=== PATIENT | female | born 1935 | race Caucasian/White ===

== ENCOUNTER → 2024-04-07 10:57 | Outpatient (REF) | payer OTHER, SELFPAY | LOC: HWRCS 10:57 | PROVIDERS: ATTENDING PHYSICIAN Internal Medicine Cardiovascular Disease; FAMILY PHYSICIAN Family Medicine | DX: I35.0 Nonrheumatic aortic (valve) stenosis (principal); I10 Essential (primary) hypertension | CPT/HCPCS: 93306 ==

== ENCOUNTER 2024-08-09 16:54 | Emergency (ER) | payer OTHER, SELFPAY ==
[2024-08-09 17:00] VITALS: BP 150/71
--- NOTE | 2024-08-09 18:46 | ED.GENMED ---
History of Present Illness
General
Chief Complaint: Fall
Source: patient
Exam Limitations: none
Time Seen by Provider: 08/09/24 17:12
Nursing documentation reviewed up to this point in time: agreed with
History of Present Illness
History of Present Illness:
Patient states she lost her balance and fell back, hitting her head on unknown object. No LOC. Sustained a laceration to top of head. Incident occurred just BASKET PERSON> No other complaints
Past History
Past History
ED Past Medical History: CAD, HTN, Hypercholesterolemia, Hypothyroidism, Other (DVT), Other (Osteoporosis) and Other (Carotid artery stenosis)
ED Past Surgical History: Orthopedic (Bilateral knee replacements)
Social History
Tobacco: Non-smoker
Personal: Single
Living: alone
Review of Systems
Review of Systems
Allergies reviewed?: Yes
All Other Systems: ROS reviewed and negative except as documented in HPI and ROS
Constitutional: Reports no symptoms
EENT: Reports no symptoms
Respiratory: Reports no symptoms
Cardiac: Reports no symptoms
ABD/GI: Reports no symptoms
: Reports no symptoms
Musculoskeletal: Reports no symptoms
Skin: Reports other (laceration to top of head)
Neurological: Reports no symptoms
Psychiatric: Reports no symptoms
Phy Exam
General Physical Exam
General Presentation: well appearing and no apparent distress
General age: appears stated age
General Skin: warm and dry
General Habitus: normal
General Mental: alert
Neurological Exam
Neurological Exam: alert, oriented x3, CN II-XII intact, no motor deficits, no sensory deficits, speech normal and normal gait
Musculoskeletal Exam
Musculoskeletal Exam: full ROM
Skin Exam
Skin Exam: normal color, warm/dry and no rash
Psychiatric Exam
Psychiatric Exam: normal mood/affect
Course
Orders/Labs/Results
Orders:
Orders
08/09/24 17:04
CT Head W/o Iv Contrast Urgent
Comment:
Reason For Exam: head injury
Cervical Spine wo Contrast CT [CT Cervical Spine W/o Iv Contr] Urgent
Comment:
Reason For Exam: head injury, c collar in place
08/09/24 18:41
Tetanus/Diphth/Acelpertussis [Adacel] 0.5 ml IM .ONCE ONE
Vital Signs
Initial and Last Documented VS:
Initial Vital Signs
Temp Pulse Resp BP Pulse Ox
98.0 F 64 20 150/71 96
08/09/24 17:00 08/09/24 17:00 08/09/24 17:00 08/09/24 17:00 08/09/24 17:00
Last Documented Vital Signs
Temp Pulse Resp BP Pulse Ox
98.0 F 64 20 150/71 96
08/09/24 17:00 08/09/24 17:00 08/09/24 17:00 08/09/24 17:00 08/09/24 17:00
Procedures
Laceration Closure
Scalp:
Status of Wound: clean
Description of Wound Edges: sharp
Preparation: cleaned with saline
Anesthesia: 1% Lidocaine
Type of Closure: single layer closure
Skin Closure Material: skin britany
*Radiology
Radiology exam reviewed: radiology read reviewed
*Pulse Oximetry
Patient hypoxic: no
*Critical Care Note
Total Time (30-74mins, 75-104mins- exclusive of procedures): Not Applicable
ED Attending Note
-
Portions of this chart may have been created with voice recognition software.� Occasional wrong word or��sound alike� substitutions may have occurred due to the inherent limitations of voice recognition software.
Discharge Plan
Departure
Patient Disposition: Home (Routine Discharge)
Date of Disposition: 08/09/24
Time of Disposition: 18:44
Patient with high blood pressure during this ER visit?: No
Condition: Good
Covid-19: Not Applicable
Discharge Problem:
Head injury
Instructions: Concussion, Adult (DC), Head Injury in Adults (DC), Laceration Repair With Britany (DC)
Prescriptions:
No Action
rosuvastatin [Crestor] 20 MG tablet
20 mg PO DAILY
vitamin B complex 1 TAB tablet
1 tab PO DAILY
fwwzqso-jfyqfjtbw-xtqq 333-133-5 mg Tablet
1 tab PO DAILY Qty: 0
Patient Comments:
calcium 800mg
metoprolol succinate 50 MG tablet extended release 24 hr
50 mg PO DAILY Qty: 0 0RF
alendronate 70 mg tablet
70 mg PO TU
loratadine 10 mg Tablet
10 mg PO DAILY
levothyroxine 112 mcg tablet
112 mcg PO DAILY
cholecalciferol (vitamin D3) [Vitamin D3] 25 mcg (1,000 unit) Tablet
25 mcg PO DAILY
biotin 1,000 mcg Tablet,Chewable
1,000 mcg PO DAILY
aspirin 325 mg Tablet
325 mg PO DAILY Qty: 0 0RF
docusate sodium 100 mg Capsule
100 mg PO BID Qty: 0 0RF
polyethylene glycol 3350 [HealthyLax] 17 gram Powder In Packet
17 g PO DAILY Qty: 0 0RF
sennosides [senna] 8.6 mg Tablet
17.2 mg PO HS Qty: 0 0RF
oxycodone 5 mg Tablet
5 mg PO Q4HPRN PRN (Reason: mild pain) Qty: 6 0RF
Referrals:
Nanci Stinson OD [Family Provider, Ophthalmology]
Referral Note: [place] can be removed in 7-10 days.
Interventions
Interventions:
*Risk Screen - Suicide Last Done: 08/09/24 16:59
*General Assessment Last Done: 08/09/24 16:59
*Neglect/Abuse Screening Last Done: 08/09/24 16:59
*ED- Fall Risk Assessment Last Done: 08/09/24 16:59
*ED COVID-19 Vaccine History Last Done: 08/09/24 16:59
ED-Musculoskeletal Assessment Last Done: 08/09/24 17:01
ED- Neurological Assessment Last Done: 08/09/24 17:01
ED-Skin Assessment Last Done: 08/09/24 17:01
Discharge Date and Time
Print Language: AMHARIC
Skin Exam
Laceration
Scalp:
Length in cm: 5
Orientation: vertical
Type of Laceration: simple
Any active bleeding?: low grade venous oozing
Distal skin color and temperature: normal-warm & good color
Normal distal neurovascular exam: Yes
Range of motion: full
[2024-08-09] MEDS: ADACEL 0.5 ML IM (19:04)
[2024-08-09 19:10] VITALS: BP 149/78
== END 2024-08-09 19:24 | disposition home or self-care (01) ==
LOC: EMR 16:54
PROVIDERS: EMERGENCY PHYSICIAN Student in an Organized Health Care Education/Training Program; FAMILY PHYSICIAN Optometrist
DX: S01.01XA Laceration without foreign body of scalp, initial encounter (principal); W19.XXXA Unspecified fall, initial encounter; E03.9 Hypothyroidism, unspecified; E78.00 Pure hypercholesterolemia, unspecified; I10 Essential (primary) hypertension; I25.10 Atherosclerotic heart disease of native coronary artery without angina pectoris; Z86.718 Personal history of other venous thrombosis and embolism
CPT/HCPCS: 12002; 99284; 90471; 70450; 72125; 90715